=== PATIENT | female | born 1990 | race Caucasian/White ===

== ENCOUNTER 2018-04-10 17:08 | Emergency (ER) | payer BC ==
--- OUTSIDE RECORDS SUMMARY | 2018-04-10 17:21 | XMS REPORT ---
:1990 Author Organization [facility] Address [address] [place] [address] Care Team Providers Name Role Phone Lee Boothe Unavailable Unavailable PROBLEMS Type Condition ICD9-CM Code [id number] Code Onset Condition SNOMED Code Dates Status Problem Other abnormal R92.8 Active [id number] and inconclusive findings on diagnostic imaging of breast Problem Breast Mass 611.72 Active [id number] ALLERGIES No Information ENCOUNTERS Encounter Location Date Diagnosis [facility] [address] Jan, OBGYN [place], [place] [id number] [facility] [address] Jan, OBGYN [place], [place] [id number] [address] Jan, Other abnormal and OBGYN [address] [place], inconclusive findings on [place] [id number] diagnostic imaging of breast R92.8 and Encounter for gynecological examination (general) (routine) without abnormal findings Z01.419 [place] [address] [facility] Jan, OBGYN [address] [place], [place] [id number] [facility] [address] Aug, Other abnormal and OBGYN [facility], inconclusive findings on [place] [id number] diagnostic imaging of breast R92.8 [facility] [address] Jul, OBGYN [place] [id number] [address] Jul, Encounter for other OBGYN [address] [place], general counseling and [place] [id number] advice on contraception Z30.09 [place] [address] Jul, Encounter for other [address] [place] [address], general counseling and [place] [id number] advice on contraception Z30.09 and Other abnormal and inconclusive findings on diagnostic imaging of breast R92.[address] Jul, [address] [place] [address], [place] [id number] [address] Mar, Encounter for surveillance OBGYN Road [address] [place] [address], of contraceptives, [place] [id number] unspecified Z30.[address] Jan, Breast Mass 611.72 ; [facility] [address] [place] [address], Encounter for other [place] [id number] general counseling and advice on contraception Z30.09 and Encounter for other contraceptive management Z30.8 [facility] [address] Jan, [place] [id number] [address] Dec, [facility] [address] [id number] [address] Dec, [facility] for [facility] [address] [place] [address], gynecological examination MD [id number] (general) (routine) without abnormal findings Z01.419 ; Encounter for screening for malignant neoplasm of cervix Z12.4 ; Other specified noninflammatory disorders of vagina N89.8 ; Breast Mass 611.72 and Encounter for other contraceptive management Z30.8 [facility] [address] Dec, [place] [id number] IMMUNIZATIONS No Known Immunizations SOCIAL HISTORY Never Assessed REASON FOR REFERRAL FUNCTIONAL STATUS PLAN OF CARE VITAL SIGNS MEDICATIONS Unknown Medications PROCEDURES No Known procedures RESULTS No Results REASON FOR VISIT schedule. Lt breast US due 03-18, order in chart Insurance Providers [facility] Member Patient Patient Patient Patient Patient Subscriber Subscriber Subscriber Group Insurance Plan Plan Plan Plan ID Relationship Address Phone Name Date of ID Name Date of No Type Insurance Insurance Insurance Coverage to Subscriber Address Phone Name Dates [employer] [phone] Gerardo self Lou [id number] Blue [id number] [address] Cross/Blue [place] Cross/Blue Shield [id number] Shield MEDICAL (GENERAL) HISTORY Type Description Date Medical History scoliosis Surgical History scoloiosis - rods and screws 2004? Hospitalization History see above
[2018-04-10 17:24] VITALS: BP 117/77
--- NOTE | 2018-04-10 17:49 | UC ---
Abdominal Pain Female HPI - HPI Summary HPI Summary: menses is 2 weeks late has been trying to get has low back pain and pain to the left side of the mid lower abdomen, brown vaginal dischage and some bloody discharge after sex - History of Current Complaint Chief Complaint: UCAbdominalPain Stated Complaint: WANTS TEST Time Seen by Provider: 04/10/18 17:26 Hx Obtained From: Patient Hx Last Menstrual Period: 03/27/18 ?: No - unknown Onset/Duration: Sudden Onset, Lasting Days Timing: Constant Severity Initially: Mild Severity Currently: Mild Location: Discrete At: LLQ, Suprapubic Radiates: No Character: Aching, Cramping Aggravating Factor(s): Nothing Alleviating Factor(s): Nothing Associated Signs and Symptoms: Positive: Back Pain, Vaginal Bleeding, Vaginal Discharge Allergies/Adverse Reactions: Allergies Allergy/AdvReac Type Severity Reaction Status Date / Time No Known Allergies Allergy Verified 04/10/18 17:20 PMH/Surg Hx/FS Hx/Imm Hx Previously Healthy: Yes - Surgical History Surgical History: Yes Surgery Procedure, Year, and Place: spine surgery to repair scoliosis, with aime and 23 screws. explanon removed from left upper arm July 2017 - Family History Known Family History: Negative: Hypertension, Diabetes - Social History Occupation: Employed Full-time Lives: With Family Alcohol Use: None Substance Use Type: None Smoking Status (MU): Never Smoked Tobacco Have You Smoked in the Last Year: No Review of Systems All Other Systems Reviewed And Are Negative: Yes Constitutional: Positive: Negative Skin: Positive: Negative Eyes: Positive: Negative ENT: Positive: Negative Respiratory: Positive: Negative Cardiovascular: Positive: Negative Gastrointestinal: Positive: Abdominal Pain Genitourinary: Positive: Vaginal/Penile Discharge, Abnormal Bleeding Motor: Positive: Negative Neurovascular: Positive: Negative Musculoskeletal: Positive: Negative Neurological: Positive: Negative Psychological: Positive: Negative Is Patient Immunocompromised?: No Physical Exam Triage Information Reviewed: Yes Appearance: Well-Appearing, No Pain Distress, Well-Nourished Vital Signs: Initial Vital Signs Temp 98.3 F 04/10/18 17:20 Pulse 89 04/10/18 17:20 Resp 16 04/10/18 17:20 BP 117/77 04/10/18 17:20 Pulse Ox 100 04/10/18 17:20 Vital Signs Reviewed: Yes Eye Exam: Normal Eyes: Positive: Conjunctiva Clear ENT Exam: Normal ENT: Positive: Normal ENT inspection, Hearing grossly normal. Negative: Trismus , Muffled voice, Hoarse voice Dental Exam: Normal Neck exam: Normal Neck: Positive: Supple, Nontender Respiratory Exam: Normal Respiratory: Positive: Chest non-tender, Lungs clear, Normal breath sounds, No respiratory distress, No accessory muscle use Cardiovascular Exam: Normal Cardiovascular: Positive: RRR, No Murmur, Pulses Normal, Brisk Capillary Refill Abdominal Exam: Other Abdomen Description: Positive: No Organomegaly, Soft. Negative: CVA Tenderness (R), CVA Tenderness (L), Distended, Guarding, McBurney's Point Tenderness Bowel Sounds: Positive: Present Musculoskeletal Exam: Normal Musculoskeletal: Positive: Strength Intact, ROM Intact, No Edema Neurological Exam: Normal Neurological: Positive: Alert, Muscle Tone Normal Psychological Exam: Normal Skin Exam: Normal Diagnostics - Laboratory Diagnostic Studies Completed/Ordered: ua and upreg negative Abd Pain Female Course/Dx - Course Course Of Treatment: npo to ed for further assessment and evaluation of pain - Differential Dx/Diagnosis Provider Diagnoses: abdomen pain Discharge - Sign-Out/Discharge Documenting (check all that apply): Patient Departure All imaging exams completed and their final reports reviewed: No Studies - Discharge Plan Condition: Fair Disposition: HOME-RECOMMEND TO ED Patient Education Materials: Acute Abdominal Pain (ED) Referrals: James DAN,[facility] [Primary Care Provider] - - Billing Disposition and Condition Condition: FAIR Disposition: Home-Recommend to ED
== END 2018-04-10 18:14 | disposition home health service (06) ==
LOC: UCEAST 17:08
DX: M54.5 Low back pain (principal); R10.9 Unspecified abdominal pain; N93.9 Abnormal uterine and vaginal bleeding, unspecified; N89.8 Other specified noninflammatory disorders of vagina
CPT/HCPCS: 81003; 84702; 99211; G0463